=== PATIENT | male | born 1980 | race Native Hawaiian/Other Pacific Islander ===

== ENCOUNTER 2017-04-05 15:05 | Emergency (ER) | payer OTHER ==
[2017-04-05 15:14] VITALS: BP 135/89; PULSE 86; RESP 18; TEMP 97.1
--- NOTE | 2017-04-05 17:04 | XR ---
EXAMINATION TYPE: XR hand complete LT DATE OF EXAM: 04/05/2017 COMPARISON: NONE HISTORY: Pain TECHNIQUE: 3 views FINDINGS: I see no fracture nor dislocation. Metacarpals are intact. There are no erosions. IMPRESSION: Negative left hand exam. There is a small 5 mm exostosis noted on the head of the first m etacarpal that is probably not of clinical significance.
--- NOTE | 2017-04-05 17:31 | ED ---
Wound/Laceration HPI - General Chief Complaint: Wound/Laceration Stated Complaint: Lac/Hand Time Seen by Provider: 04/05/17 16:05 Source: patient, RN notes reviewed, old records reviewed Mode of arrival: ambulatory Limitations: no limitations - History of Present Illness Initial Comments: This is a 36 year old male with CC of left hand laceration. Patient reports he was at home and working with hay bails. Patient reports that he was putting a bail on a conveyor belt, and his glove got caught. Patient reports that he has laceration over 2nd and 3rd proximal knuckles. Patient does not know his status of his tetanus vaccine. Patient reports full range of motion of his fingers. - Related Data Previous Rx's Medication Instructions Recorded Cephalexin [Keflex] 500 mg PO Q8HR #21 cap 04/05/17 Allergies Allergy/AdvReac Type Severity Reaction Status Date / Time No Known Allergies Allergy Verified 04/05/17 15:14 Review of Systems ROS Statement: Those systems with pertinent positive or pertinent negative responses have been documented in the HPI. ROS Other: All systems not noted in ROS Statement are negative. Past Medical History Past Medical History: Osteoarthritis (OA) Additional Past Medical History / Comment(s): glaucoma History of Any Multi-Drug Resistant Organisms: None Reported Past Surgical History: No Surgical Hx Reported Smoking Status: Current every day smoker Past Alcohol Use History: None Reported Past Drug Use History: Marijuana General Exam - General Exam Comments Initial Comments: Well appearing 36 year old male, no distress. Limitations: no limitations General appearance: alert, in no apparent distress Head exam: Present: atraumatic, normocephalic, normal inspection Eye exam: Present: normal appearance, PERRL, EOMI. Absent: scleral icterus, conjunctival injection, periorbital swelling ENT exam: Present: normal exam, mucous membranes moist Neck exam: Present: normal inspection. Absent: tenderness, meningismus, lymphadenopathy Respiratory exam: Present: normal lung sounds bilaterally. Absent: respiratory distress, wheezes, rales, rhonchi, stridor Cardiovascular Exam: Present: regular rate, normal rhythm, normal heart sounds. Absent: systolic murmur, diastolic murmur, rubs, gallop, clicks GI/Abdominal exam: Present: soft, normal bowel sounds. Absent: distended, tenderness, guarding, rebound, rigid Extremities exam: Present: normal inspection, full ROM, normal capillary refill , other (left 2nd nad 3rd finger proximal interphalangeal joint laceration. EAch measure 1.5 cm. Patient has full range of motion, no tendon involvment. ). Absent: tenderness, pedal edema, joint swelling, calf tenderness Back exam: Present: normal inspection Neurological exam: Present: alert, oriented X3, CN II-XII intact Psychiatric exam: Present: normal affect, normal mood Course Vital Signs 04/05/17 15:08 Temperature 97.1 F L Pulse Rate 86 Respiratory 18 Rate Blood Pressure 135/89 O2 Sat by Pulse 99 Oximetry Procedures - Laceration Laceration #1 Indication: laceration Site: hand (left 2nd finger ) Size (cm): 1 Description: linear Depth: simple, single layer Anesthetic Used: lidocaine 1% Anesthesia Technique: local infiltration Amount (mls): 2 Pre-repair: wound explored, irrigated extensively Type of Sutures: nylon Size of Sutures: 5-0 Number of Sutures: 4 Technique: simple, interrupted Patient Tolerated Procedure: well Laceration #2 Site: hand (left 3rd finger) Size (cm): 1 Description: flap Depth: simple, single layer Anesthetic Used: lidocaine 1% Anesthesia Technique: local infiltration Amount (mls): 2 Pre-repair: wound explored Type of Sutures: nylon Size of Sutures: 5-0 Number of Sutures: 4 Technique: simple, interrupted Patient Tolerated Procedure: well, no complications Medical Decision Making - Medical Decision Making This is a 36 year old male with CC of left hand laceration. Patient reports he was at home and working with [employer]. Patient reports that he was putting a bail on a conveyor belt, and his glove got caught. Patient reports that he has laceration over 2nd and 3rd proximal knuckles. Patient and was soaked in soap water and betadine. Patient has full range of motion and sensation. Xray show no acute abnormality. Patient received a total of 7 sutures between both fingers. Discussed monitor for infection. REturn parameters discussed. Given tetanus and keflex. - Radiology Data Radiology results: report reviewed No acute osseous abnormality. Disposition Clinical Impression: Finger laceration Disposition: HOME SELF-CARE Condition: Good Instructions: Finger Laceration (ED) Additional Instructions: Please return to the emergency room in 8-10 days to have sutures removed. Please leave wound covered for the first 24-48 hours and then leave open to air after that time. Please use clean soap and water to clean the suture area to prevent scabbing over the top of your sutures. Please watch for any signs of infection which may include but not limited to increased pain, swelling, redness , fever or chills. Please return to the emergency room if any signs of infection do occur. Please return to the emergency room for any other concerns or complications. Prescriptions: Cephalexin [Keflex] 500 mg PO Q8HR #21 cap Referrals: None,Stated [Primary Care Provider] - 1-2 days Tiffanie Brand MD [STAFF PHYSICIAN] - 1-2 days Time of Disposition: 17:28
[2017-04-05] MEDS ORDERED: ACET/COD 300 MG/30 MG STARTER PACK 6 TAB BTL PO STA (17:47)
[2017-04-05] MEDS ORDERED: DIPH,PERTUS(ACELL)TETVAC-LF 0.5 ML VIAL IM ONE (17:51)
--- NOTE | 2017-04-07 09:06 | CDI ---
Documentation Clarification OP Dear Dr. Carey Ospina Please do addendum to ED report that provides Lacerartion length and repair procedure. Thank you, Sukhjinder Ramsey Patient Svcs Mgr If you have any questions, please contact [employer] at [phone] [facility]
== END 2017-04-05 18:10 | disposition home or self-care (01) ==
LOC: EC 15:05
DX: S61.211A Laceration without foreign body of left index finger without damage to nail, initial encounter (principal); S61.213A Laceration without foreign body of left middle finger without damage to nail, initial encounter; F17.200 Nicotine dependence, unspecified, uncomplicated; Z23 Encounter for immunization; W31.89XA Contact with other specified machinery, initial encounter; Y92.009 Unspecified place in unspecified non-institutional (private) residence as the place of occurrence of the external cause
CPT/HCPCS: 12001; 90471; 90715; 99282; 99283

== ENCOUNTER 2018-07-28 11:01 | Emergency (ER) | payer OTHER ==
[2018-07-28 11:22] VITALS: RESP 18
[2018-07-28] MEDS ORDERED: DEXAMETHASONE SOD PHOSPHATE 10 MG/ML 1 ML VIAL PO STA (12:13)
[2018-07-28] MEDS ORDERED: ACETAMINOPHEN TAB 325 MG TAB PO STA (12:14)
[2018-07-28] MEDS ORDERED: DEXAMETHASONE 4 MG TAB PO STA (12:47)
[2018-07-28] MEDS ORDERED: AMOXICILLIN 500 MG CAP PO STA (13:02)
--- NOTE | 2018-07-28 13:13 | ED ---
ENT HPI - General Chief complaint: ENT Stated complaint: SORE THROAT, BODY ACHES Time Seen by Provider: 07/28/18 11:56 Source: patient Mode of arrival: ambulatory Limitations: no limitations - History of Present Illness Initial comments: 37-year-old male with no past medical history presenting today for chief complaint of sore throat, body aches and fever. Patient states his son had recently been diagnosed with strep. Patient states the first day of illness about 2 days ago he had bodyaches, tender anterior neck denies any abdominal pain, coughing, nausea, vomiting diarrhea that this or photophobia. Patient states that the following day he began experiencing severe sore throat, pain with swallowing. Denies any difficulty breathing, sensation of throat tightness or neck swelling. Patient states that he has been febrile, does not know temperature however he states he felt warm and had chills. She has been taking ibuprofen and Tylenol for pain management. Upon arrival patient vital signs stable, he appears as though he feels unwell however nontoxic. Remainder of ROS negative, patient denies any recent shortness of breath, chest pain, back pain, numbness or tingling, dysuria or hematuria, constipation or diarrhea , headaches or visual changes, or any other complaints. - Related Data Home Medications Medication Instructions Recorded Confirmed Naproxen 500 mg PO BID PRN 07/28/18 07/28/18 Previous Rx's Medication Instructions Recorded Amoxicillin 500 mg PO Q12HR 10 Days #20 cap 07/28/18 predniSONE 20 mg PO DAILY 3 Days #3 tab 07/28/18 Allergies Allergy/AdvReac Type Severity Reaction Status Date / Time No Known Allergies Allergy Verified 07/28/18 11:33 Review of Systems ROS Statement: Those systems with pertinent positive or pertinent negative responses have been documented in the HPI. ROS Other: All systems not noted in ROS Statement are negative. Constitutional: Reports: fever, chills ENT: Reports: throat pain Respiratory: Denies: cough, dyspnea, wheezes, hemoptysis, stridor Cardiovascular: Denies: chest pain, palpitations Gastrointestinal: Denies: abdominal pain, nausea, vomiting, diarrhea, constipation, hematemesis, melena Genitourinary: Denies: urgency, dysuria, frequency, hematuria, discharge Musculoskeletal: Denies: back pain Skin: Denies: rash Past Medical History Past Medical History: Osteoarthritis (OA) Additional Past Medical History / Comment(s): glaucoma History of Any Multi-Drug Resistant Organisms: None Reported Past Surgical History: No Surgical Hx Reported Past Psychological History: No Psychological Hx Reported Smoking Status: Current every day smoker Past Alcohol Use History: None Reported Past Drug Use History: Marijuana General Exam - General Exam Comments Initial Comments: General: The patient is awake and alert, in no distress, she does appear as though he feels unwell however nontoxic. Eye: Pupils are equal, round and reactive to light, extra-ocular movements are intact. No nystagmus. There is normal conjunctiva bilaterally. No signs of icterus. Ears, nose, mouth and throat: There are moist mucous membranes and no oral lesions. Oropharynx is erythematous, tonsils erythematous and enlarged with tonsillar crypts. Uvula is midline. Tympanic membranes within normal limits bilaterally Neck: The neck is supple, there is no tenderness or JVD. Tender anterior cervical lymphadenopathy Cardiovascular: There is a regular rate and rhythm. No murmur, rub or gallop is appreciated. Respiratory: Lungs are clear to auscultation, respirations are non-labored, breath sounds are equal. No wheezes, stridor, rales, or rhonchi. Gastrointestinal: Soft, nontender abdomen. No tenderness to deep and light palpation. Bowel sounds within normal limits to auscultation. Musculoskeletal: Normal ROM, no tenderness. Strength 5/5. Sensation intact. Pulses equal bilaterally 2+. Neurological: A&O x 3. CN II-XII intact, There are no obvious motor or sensory deficits. Coordination appears grossly intact. Speech is normal. Skin: Skin is warm and dry and no rashes or lesions are noted. Psychiatric: Cooperative, appropriate mood & affect, normal judgment. Limitations: no limitations Course Vital Signs 07/28/18 07/28/18 11:20 13:30 Temperature 99.1 F 98.8 F Pulse Rate 80 77 Respiratory 18 18 Rate Blood Pressure 107/71 113/64 O2 Sat by Pulse 97 97 Oximetry Medical Decision Making - Medical Decision Making Pt appears nontoxic. Physical exam concerning for strep pharyngitis. Pt given 10mg PO dexamethasone and tylenol. Group a strep positive, heterophile negative. No signs of respiratory compromise. No signs concerning for peritonsillar abscess at this time. No hot potato voice. At this time feel patient is stable for discharge with prescription for amoxicillin for treatment of strep pharyngitis as well as prednisone 20 mg daily times 3 days. Pt is to follow-up with primary care provider in one to 2 days. Return parameters were discussed at length, patient verbalizes understanding. Case discussed with Dr. Leal, at this time we feel pt is stable for discharge with abx and f/u. Pt agreeable with plan. Discharged in stable condition. - Lab Data Lab Results 07/28/18 07/28/18 07/28/18 Range/Units 12:11 12:19 12:19 Heterophile Antibody Negative (Negative) Influenza Type A RNA Not Detected (Not Detectd) Influenza Type B (PCR) Not Detected (Not Detectd) Group A Strep Rapid Positive A (Negative) Disposition Clinical Impression: Group beta Strep positive, Strep pharyngitis Disposition: HOME SELF-CARE Condition: Good Instructions: Strep Throat (ED) Additional Instructions: Please use medication as discussed. Please follow-up with family doctor in the next 2 days. Please return to emergency room if the symptoms increase or worsen or for any other concerns, including neck swelling, difficulty breathing or swallowing. Prescriptions: Amoxicillin 500 mg PO Q12HR 10 Days #20 cap predniSONE 20 mg PO DAILY 3 Days #3 tab Is patient prescribed a controlled substance at d/c from ED?: No Referrals: Yaniv Reyes Jr, [Primary Care Provider] - 1-2 days Time of Disposition: 13:12
[2018-07-28 13:32] VITALS: BP 113/64; PULSE 77; TEMP 98.8
== END 2018-07-28 13:30 | disposition home or self-care (01) ==
LOC: EC 11:01
DX: J02.0 Streptococcal pharyngitis (principal); B95.1 Streptococcus, group B, as the cause of diseases classified elsewhere; F17.200 Nicotine dependence, unspecified, uncomplicated
CPT/HCPCS: 36415; 86308; 87430; 87502; 99283; J8540

== ENCOUNTER 2019-08-16 14:59 | Emergency (ER) | payer OTHER ==
[2019-08-16 15:09] VITALS: RESP 18
--- NOTE | 2019-08-16 15:28 | ED ---
General Adult HPI - General Chief complaint: Extremity Injury, Upper Stated complaint: nail gun injury right hand Time Seen by Provider: 08/16/19 15:11 Source: patient Mode of arrival: ambulatory Limitations: no limitations - History of Present Illness Initial comments: Patient is a 39-year-old male presenting to the emergency Department with complaints of right wrist pain 2 days. Patient states he was working in his basement and accidentally shot himself with a nail gun in the right wrist. Patient states the nail was approximately 3 inches in length and states only about an inch was sticking out of his skin. Patient states he immediately pulled out the nail. He does not remember if it came out easily or there was a lot of resistance. It happened so fast. Patient states the wound did bleed quite a bit for the first few minutes. He denies being on blood thinners. Patient states he had a tetanus vaccine 2 years ago after receiving stitches. Patient states he has been having increase in pain and swelling of his right wrist and into his right hand and forearm. Patient states he is not able to fully extend or flex his fingers without pain. Patient denies any other history of trauma or injuries to his right hand or wrist. Patient has no other complaints at this time. Upon arrival to the ER, vital signs are stable. - Related Data Home Medications Medication Instructions Recorded Confirmed Naproxen 500 mg PO BID PRN 07/28/18 07/28/18 Previous Rx's Medication Instructions Recorded Amoxicillin 500 mg PO Q12HR 10 Days #20 cap 07/28/18 predniSONE 20 mg PO DAILY 3 Days #3 tab 07/28/18 Cephalexin [Keflex] 500 mg PO Q6HR 7 Days #28 cap 08/16/19 Allergies Allergy/AdvReac Type Severity Reaction Status Date / Time No Known Allergies Allergy Verified 07/28/18 11:33 Review of Systems ROS Statement: Those systems with pertinent positive or pertinent negative responses have been documented in the HPI. ROS Other: All systems not noted in ROS Statement are negative. Past Medical History Past Medical History: Osteoarthritis (OA) Additional Past Medical History / Comment(s): glaucoma History of Any Multi-Drug Resistant Organisms: None Reported Past Surgical History: No Surgical Hx Reported Past Psychological History: No Psychological Hx Reported Smoking Status: Former smoker Past Alcohol Use History: None Reported Past Drug Use History: Marijuana General Exam - General Exam Comments Initial Comments: GENERAL: Well-appearing, well-nourished and in no acute distress. HEAD: Atraumatic, normocephalic. EYES: Pupils equal round and reactive to light, extraocular movements intact, sclera anicteric, conjunctiva are normal. ENT: Nares patent, oropharynx clear without exudates. Moist mucous membranes. NECK: Normal range of motion, supple without lymphadenopathy or JVD. LUNGS: Breath sounds clear to auscultation bilaterally and equal. No wheezes rales or rhonchi. HEART: Regular rate and rhythm without murmurs, rubs or gallops. EXTREMITIES: Pain with palpation of the right wrist, forearm, palmar aspect. Patient has significant pain with right wrist range of motion. Patient is able to pronate and supinate slightly. Patient is not able to fully extend his fingers secondary to pain. Patient does not have opposition of the thumb to the pinky. Patient is neurovascular intact. NEUROLOGICAL: Cranial nerves II through XII grossly intact. Normal speech, normal gait. PSYCH: Normal mood, normal affect. SKIN: Warm, Dry, normal turgor, no rashes. Patient has a single puncture wound to the lateral aspect of the right wrist. There is some mild swelling around the area. There is no overlying erythema. Limitations: no limitations Course Vital Signs 08/16/19 15:06 Temperature 98 F Pulse Rate 58 L Respiratory 18 Rate Blood Pressure 118/70 O2 Sat by Pulse 99 Oximetry Medical Decision Making - Medical Decision Making Patient is a 3-year-old male presenting with right wrist pain after shooting himself with a nail gun 2 days ago. Patient's tetanus is up-to-date. X-rays reveal no acute fractures, dislocations or foreign bodies. Patient is able to move around his wrist and fingers however is very painful. I discussed these findings with the patient and he will follow up with orthopedics if symptoms persist after one week. Patient will be started on Keflex for infection prevention. Patient is stable for discharge at this time and he is in agreement with this plan of care. Return parameters were discussed with the patient and he verbalized understanding. Case discussed with Dr. Ospina. Disposition Clinical Impression: Puncture wound of right wrist Disposition: HOME SELF-CARE Condition: Stable Instructions (If sedation given, give patient instructions): Puncture Wound (ED) Additional Instructions: Please return to the Emergency Department if symptoms worsen or any other concerns. Take antibiotic as prescribed Follow up with orthopedics if symptoms persist after one week. Prescriptions: Cephalexin [Keflex] 500 mg PO Q6HR 7 Days #28 cap Is patient prescribed a controlled substance at d/c from ED?: No Referrals: Yaniv Reyes Jr, DO [Primary Care Provider] - 1-2 days Manny Peralta, PAC [PHYSICIAN PLUG CUTTING MACHINE OPERATOR] - 1-2 days
--- NOTE | 2019-08-16 15:53 | XR ---
EXAMINATION TYPE: XR wrist complete RT DATE OF EXAM: 08/16/2019 CLINICAL HISTORY: Right wrist pain. Puncture wound of the radial aspect of the right wrist appear a l ittle injury TECHNIQUE: Frontal, lateral and oblique images of the right wrist are obtained. Scaphoid view was al so obtained. COMPARISON: None FINDINGS: There is no acute fracture/dislocation evident in the right wrist. The joint spaces in th e right wrist appear within normal limits. The overlying soft tissue appears unremarkable. No radiop aque foreign body. IMPRESSION: There is no acute fracture or dislocation in the right wrist. No osseous laceration or r adiopaque foreign body.
[2019-08-16 16:16] VITALS: BP 104/70; PULSE 54; TEMP 97.9
== END 2019-08-16 16:11 | disposition home or self-care (01) ==
LOC: EC 14:59
DX: S61.531A Puncture wound without foreign body of right wrist, initial encounter (principal); M19.90 Unspecified osteoarthritis, unspecified site; H40.9 Unspecified glaucoma; Z87.891 Personal history of nicotine dependence; W29.4XXA Contact with nail gun, initial encounter; Y93.89 Activity, other specified; Y92.009 Unspecified place in unspecified non-institutional (private) residence as the place of occurrence of the external cause
CPT/HCPCS: 99283